=== PATIENT | male | born 1980 | race Caucasian/White ===

== ENCOUNTER 2017-05-14 23:35 | Emergency (ER) | payer OTHER ==
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
[2017-05-15] MEDS ORDERED: SODIUM CHLORIDE 0.9% 1000ML 1,000 ML IVS ONE (01:15)
[2017-05-15 01:39] VITALS: BP 90/49; TEMP 98.2; O2SAT 96
== END 2017-05-15 01:39 | disposition home or self-care (01) ==
LOC: ER 23:35
DX: S00.83XA Contusion of other part of head, initial encounter (principal); S50.01XA Contusion of right elbow, initial encounter; F10.129 Alcohol abuse with intoxication, unspecified; Y90.6 Blood alcohol level of 120-199 mg/100 ml; F31.9 Bipolar disorder, unspecified; Y09 Assault by unspecified means
CPT/HCPCS: 36415; 70200; 70450; 72125; 73070; 80053; 80320; 82150; 83690; 85025; 85610; 85730; J7030; L0120